=== PATIENT | male | born 1975 | race Caucasian/White ===

== ENCOUNTER 2021-01-11 06:55 | Emergency (ER) | payer OTHER, SELFPAY ==
[~2021-01-11] VITALS: Ht 177.8 cm; Wt 162.6 kg
--- NOTE | 2021-01-11 07:25 | NUR ---
PATIENT HAS A RASH TO BOTTOM OF PENIS SHAFT, NOTICIED IT LAST NIGHT
[2021-01-11] MEDS ORDERED: CEFTRIAXONE 1,000 MG IM ONE (07:30)
[2021-01-11 07:53] LABS: MICROSCOPIC NOT IND
--- NOTE | 2021-01-11 08:19 | NUR ---
moved patient to room 41. patient mostly moaning and not answering questions, sedated from prior precedex gtt
[2021-01-11 08:56] VITALS: BP 132/80
--- NOTE | 2021-01-11 08:58 | NUR ---
This RN provided d/c instructions only. Pt VS assessed and no IV in place to remove. Pt ambulatory to d/c desk with limp present.
== END 2021-01-11 08:59 | disposition home or self-care (01) ==
LOC: ED 07:33
DX: N48.22 Cellulitis of corpus cavernosum and penis (principal)
CPT/HCPCS: 81003; 96372; 99283; J0696